=== PATIENT | male | born 1975 ===

== ENCOUNTER 2023-06-03 11:34 | Outpatient (CLI) | payer OTHER ==
--- NOTE | 2023-06-03 14:09 | CT Report ---
PROCEDURE: Sinus INDICATIONS: CHRONIC SINUSTITIS TECHNIQUE: Noncontrast 3.0 mm axial images acquired from the frontal sinuses to the mid-sella, with coronal and sagittal reformats. For radiation dose reduction, the following was used: automated exposure control , adjustment of mA and/or kV according to patient size. COMPARISON: None. FINDINGS: Image quality: Metallic streak artifact is seen, which is greatly improved by the metal suppression algorithm. Maxillary Sinuses: No bony remodeling or destruction. Likely mucous retention cysts can be seen with in the inferior aspects of the maxillary sinuses. Ethmoid Air Cells: No bony remodeling or destruction. Sinuses are clear. Sphenoid Sinuses: No bony remodeling or destruction. Sinuses are clear. Frontal Sinuses: No bony remodeling or destruction. Sinuses are clear. Ostiomeatal Complexes: The ostiomeatal complexes are patent, yet they are constitutionally narrowed, with bilateral Uma cells. Miscellaneous: Visualized intra-orbital contents are normal. There are bilateral yordy bullosa. Th ere is mild to moderate rightward nasal septal deviation. IMPRESSION: No significant active paranasal sinus disease can be seen. Mucous retention cysts can be seen within the inferior maxillary sinuses. The ostiomeatal complexes are patent, yet they are constitutionally narrowed, with bilateral Uma c ells. Bilateral yordy bullosa can be seen. Mild to moderate rightward nasal septal deviation is also seen. Reviewed by: Micha Wolf MD on 06/03/2023 1:08 PM [place] Approved by: Micha Wolf MD on 06/03/2023 1:08 PM [facility] Station ID: [id number]
== END 2023-06-03 11:35 | disposition home or self-care (01) ==
LOC: DI 11:34
PROVIDERS: ATTEND Registered Nurse
DX: J32.9 Chronic sinusitis, unspecified (principal); J34.1 Cyst and mucocele of nose and nasal sinus; J34.2 Deviated nasal septum; J34.89 Other specified disorders of nose and nasal sinuses